=== PATIENT | female | born 1950 | race Caucasian/White ===

== ENCOUNTER → 2016-09-22 | Outpatient (CLI) | payer OTHER ==
[~2016-09-22] MED LIST: ALEVE220 MG PO; ASACOL400 MG PO; BACTRIM,SEPT1 TABLET PO; BREO ELLIPTA I1 EACH IH; BRINTELLIX10 MG PO; CALCIUM600 M1 PO; CALCIUM600 MG PO; CARAFATE1 GM PO; CHERATUSSIN AC473 ML PO; COMPAZINE10 MG PO; FLAGYL500 MG PO; FLONASE16 G1 BOTH NARES; FLUTICASONE NASAL SP; GLUCOPHAGE XR,500 MG PO; HYDROCODON-ACE1 EAC7 PO; LOPRESSOR25 MG PO; LYRICA150 MG PO; METOPROLOL TART25 MG PO; MULTIVITAMIN1 EAC1 PO; NORCO 5/3251 TABLET PO; OMEPRAZOLE20 MG PO; ONE DAILY1 EAC3 PO; PEPCID20 MG PO; PREDNISONE10 M1 PO; PROVENTIL,2.5 MG/3 M IH; PROZAC20 M1 PO; SSD25GM TP; ULTRAM50 MG PO; VANCOCIN 250 M250 MG PO; VENTOLIN HFA18 GM IH; VIT B12; VITAMIN B-12500 MC2 PO; VITAMIN B-12500 MC5 SL; XANAX; ZANTAC150 MG PO; ZITHROMAX Z-PA250 MG PO; [UNRECOGNIZED DRUG - SUPPLY] MC
== END | disposition home or self-care (01) ==
LOC: EKG 09:43
DX: I48.91 Unspecified atrial fibrillation (principal); I51.7 Cardiomegaly; I34.0 Nonrheumatic mitral (valve) insufficiency; I36.1 Nonrheumatic tricuspid (valve) insufficiency
CPT/HCPCS: 93306

== ENCOUNTER 2017-04-13 14:56 | Emergency (ER) | payer OTHER ==
[~2017-04-13] VITALS: Ht 170.2 cm; Wt 80.5 kg
[~2017-04-13 14:56] MED LIST changes: +JANUVIA25 M1 PO; +LEVO-T25 MCG PO; +LISINOPRIL5 MG PO
[2017-04-13 16:37] LABS: CHLORIDE 104 mEq/L (99-109); POTASSIUM 4.6 mEq/L (3.7-5.4); SODIUM 139 mEq/L (136-147)
[2017-04-13 16:38] LABS: GLUCOSE 109 mg/dL (70-99)
[2017-04-13 16:40] LABS: ANION GAP 10 MEQ/L (2-14)
[2017-04-13 16:42] LABS: GFR ESTIMATE (CALCULATED) 43 mL/min/
[2017-04-13 16:43] LABS: UREA NITROGEN (BUN) 12 mg/dL (9-23)
[2017-04-13 16:54] LABS: HEMATOCRIT 44.6 % (36.0-46.0); MCH 31.2 PG (29.0-34.0); MCHC 33.4 G/DL (30.0-36.0); MCV 93.3 FL (83-99); MEAN PLAT.VOLUME 10.2 uM^3 (9.5-12.4); PLATELET COUNT 107 K/uL (156-360); RBC DIS.WIDTH-CV 13.8 % (11.8-14.6); RBC DIS.WIDTH-SD 47.8 % (39-53); RED BLOOD COUNT 4.78 M/uL (3.80-5.20); WHITE BLOOD COUNT 8.5 K/uL (4.1-10.2)
[2017-04-13 18:24] LABS: ERTH.SED.RATE 16 MM/HR (0-30)
[2017-04-13 19:19] LABS: ADD MIUA? NO; BILIRUBIN NEGATIVE; BLOOD NEGATIVE; COLOR STRAW ((YELLOW)); GLUCOSE (STRIP) NEGATIVE; KETONES NEGATIVE; LEUKOCYTES NEGATIVE; NITRITE NEGATIVE; PROTEIN (STRIP) NEGATIVE; SPECIFIC GRAVITY 1.009 (1.000-1.030); UCUL ADDED? NO; UROBILINOGEN 0.2 MG/DL (0.2-1.0)
[2017-04-13] MEDS ORDERED: FLEXERIL10 MG PO (21:06)
[2017-04-13 21:30] VITALS: BP 157/78
== END 2017-04-13 21:40 | disposition home or self-care (01) ==
LOC: EME 14:56
PROVIDERS: Emergency Medicine
DX: M51.16 Intervertebral disc disorders with radiculopathy, lumbar region (principal); Z85.72 Personal history of non-Hodgkin lymphomas; Z92.25 Personal history of immunosuppression therapy; I10 Essential (primary) hypertension; Z87.442 Personal history of urinary calculi; Z91.041 Radiographic dye allergy status; F17.200 Nicotine dependence, unspecified, uncomplicated
CPT/HCPCS: 72100; 72158; 80048; 81003; 85027; 85651; 86140; 99281; 99285; J2270; J2405; J7030

== ENCOUNTER 2017-06-02 12:41 | Emergency (ER) | payer OTHER ==
[~2017-06-02] VITALS: Ht 170.2 cm; Wt 82.2 kg
[~2017-06-02 12:41] MED LIST changes: +FLEXERIL10 MG PO; +NAPROSYN500 MG PO; +PREDNISONE10 MG PO
[2017-06-02] MEDS ORDERED: HYDROCODON-ACE1 EAC7 PO (14:21)
[2017-06-02] MEDS ORDERED: METHYLPREDNISOL32 MG PO (14:21)
[2017-06-02] MEDS ORDERED: CYCLOBENZAPRINE5 MG PO (14:22)
[2017-06-02] MEDS ORDERED: PANTOPRAZOLE SO40 MG PO (14:22)
[2017-06-02 14:25] LABS: ADD MIUA? YES; BILIRUBIN NEGATIVE; BLOOD SMALL; GLUCOSE (STRIP) NEGATIVE; KETONES NEGATIVE; LEUKOCYTES LARGE; NITRITE POSITIVE; PROTEIN (STRIP) 30; SPECIFIC GRAVITY 1.013 (1.000-1.030); UROBILINOGEN 0.2 MG/DL (0.2-1.0)
[2017-06-02 14:30] LABS: COLOR DK YELLOW ((YELLOW))
[2017-06-02 14:45] LABS: RED BLOOD CELLS 0-5 /HPF (0-5); WHITE BLOOD CELLS TNTC /HPF (0-5); WHITE BLOOD CELLS CLUMP FEW /HPF (0-5)
[2017-06-02 14:46] LABS: BACTERIA 3+ /HPF; EPITHELIAL CELLS 1+ /HPF; MUCUS TRACE /LPF; UCUL ADDED? YES
[2017-06-02] MEDS ORDERED: KEFLEX500 MG PO (15:03)
[2017-06-02] MEDS ORDERED: PERCOCET 5/31 TABLET PO (15:03)
[2017-06-02] MEDS ORDERED: ZOFRAN4 MG PO (15:03)
[2017-06-02 15:26] VITALS: BP 101/64
== END 2017-06-02 15:30 | disposition home or self-care (01) ==
LOC: EME 12:41
PROVIDERS: Physician Assistant
DX: M54.42 Lumbago with sciatica, left side (principal); N39.0 Urinary tract infection, site not specified; I10 Essential (primary) hypertension; Z87.891 Personal history of nicotine dependence
CPT/HCPCS: 81003; 87077; 87086 GA; 87186; 99281; 99284; J3010